=== PATIENT | female | born 1940 | race Caucasian/White ===

== ENCOUNTER → 2016-11-08 | Outpatient (CLI) | payer MEDICARE, BC ==
--- NOTE | 2016-11-08 14:46 | US ---
EXAMINATION TYPE: US venous doppler duplex LE RT DATE OF EXAM: 11/08/2016 2:07 PM COMPARISON: US 2009 CLINICAL HISTORY: M79.661 Pain right lower limb. Pain at knee x 1 month. SIDE PERFORMED: Right TECHNIQUE: The lower extremity deep venous system is examined utilizing real time linear array sonog zoe with graded compression, doppler sonography and color-flow sonography. VESSELS IMAGED: Common Femoral Vein Deep Femoral Vein Greater Saphenous Vein * Femoral Vein Popliteal Vein Small Saphenous Vein * Proximal Calf Veins (* superficial vessels) Right Leg: Negative for DVT. Right popliteal fossa cyst is noted = 3.6 x 0.8 x 1.8cm. Tech findings called to [facility] at Dr Tam's [facility] at exam's end. Left Leg: IMPRESSION: Grayscale, color doppler, spectral doppler imaging performed of the deep veins of the lo wer extremities. There is normal flow, compressibility, vascular waveforms bilaterally. No evident deep venous thrombosis at or above the right knee. Semimembranosus gastrocnemius cyst present in the popliteal fossa.
== END | disposition home or self-care (01) ==
LOC: RADUSWWP 13:35
PROVIDERS: ATTEND Family Medicine
DX: M85.661 Other cyst of bone, right lower leg (principal); M79.661 Pain in right lower leg

== ENCOUNTER → 2017-01-27 | Outpatient (CLI) | payer MEDICARE, BC ==
--- NOTE | 2017-01-27 10:13 | MR ---
EXAMINATION TYPE: MR knee RT wo con DATE OF EXAM: 01/27/2017 COMPARISON: NONE HISTORY: Right knee pain TECHNIQUE: Multiplanar, multisequence imaging of the right knee is performed without IV contrast. FINDINGS: MEDIAL MENISCUS: Complex tear posterior horn medial meniscus with pseudoextrusion of the meniscus. Gr lit III chondromalacia of the medial femoral articular cartilage. LATERAL MENISCUS: Intrasubstance signal in the posterior horn most typical of myxoid degeneration. Th ere is signal alteration within the anterior horn suspicious for tear.. CRUCIATE LIGAMENTS: The anterior and posterior cruciate ligaments are intact and unremarkable. COLLATERAL LIGAMENTS: The medial collateral ligament and lateral collateral ligament complex are inta ct. Fluid surrounding the MCL suggest MCL strain. EXTENSOR MECHANISM: Patellar and quadriceps tendons intact. Trace amount of fluid in the suprapatella r bursa. Grade II chondromalacia lateral patellar facet. Prepatellar soft tissue edema noted. POPLITEAL CYST: 0.7 x 0.5 x 2.4 cm popliteal fossa cyst. TRICOMPARTMENT SPACES: Mild narrowing of the medial compartment knee joint and patellofemoral joint. BONE MARROW SIGNAL: Marrow signal within the medial tibia likely related marrow edema or contusion.. IMPRESSION: 1. Complex posterior horn medial meniscal tear. 2. Anterior horn lateral meniscal tear. 3. Ill definition posterior fibers of the proximal ACL suspicious for strain or partial tear. 4. MCL strain with no tear. 5. Osteoarthritis.
== END | disposition home or self-care (01) ==
LOC: RADMRIMAIN 08:41
PROVIDERS: ATTEND Orthopaedic Surgery
DX: S86.811A Strain of other muscle(s) and tendon(s) at lower leg level, right leg, initial encounter (principal); S83.241A Other tear of medial meniscus, current injury, right knee, initial encounter; S83.281A Other tear of lateral meniscus, current injury, right knee, initial encounter; M17.11 Unilateral primary osteoarthritis, right knee

== ENCOUNTER → 2020-12-19 | Outpatient (CLI) | payer MEDICARE, OTHER ==
[2020-12-19 14:57] LABS: Basophils % (A) 0 %; Eosinophils # (A) 0.1 k/uL (0-0.7); Eosinophils % (A) 2 %; HCT 37.6 % (34.0-46.0); HGB 12.4 gm/dL (11.4-16.0); Lymphocytes # (A) 1.8 k/uL (1.0-4.8); Lymphocytes % (A) 22 %; MCH 31.1 pg (25.0-35.0); MCHC 32.9 g/dL (31.0-37.0); MCV 94.7 fL (80.0-100.0); Mean Platelet Volume 8.1; Monocytes # (A) 0.5 k/uL (0-1.0); Monocytes % (A) 6 %; Neutrophils # (A) 5.4 k/uL (1.3-7.7); Neutrophils % (A) 68 %; Platelet Count 322 k/uL (150-450); RBC 3.97 m/uL (3.80-5.40); RDW 13.5 % (11.5-15.5)
[2020-12-19 15:03] LABS: Potassium 3.7 mmol/L (3.5-5.1)
== END | disposition home or self-care (01) ==
LOC: LABPAT 13:25
PROVIDERS: ATTEND Orthopaedic Surgery
DX: Z01.818 Encounter for other preprocedural examination (principal); M23.92 Unspecified internal derangement of left knee; R00.1 Bradycardia, unspecified
CPT/HCPCS: 36415; 80051; 85025; 93005

== ENCOUNTER 2020-12-21 08:19 | Day surgery (SDC) | payer MEDICARE, OTHER ==
[2020-12-20 08:33] VITALS: BMI 31.3
--- NOTE | 2020-12-20 19:23 | HP ---
HISTORY AND PHYSICAL DATE OF SURGERY: 12/21/2020 Jessenia Fuentes is an 80-year-old patient seen with left knee pain. We discussed options. She elected to proceed with arthroscopy. Consent was obtained. PAST MEDICAL HISTORY: Hypertension. PAST SURGICAL HISTORY: Carpal tunnel release, right knee arthroscopy. MEDICATIONS: Amlodipine, aspirin. ALLERGIES: PENICILLIN. SOCIAL HISTORY: She denies tobacco use. PHYSICAL EVALUATION OF THE LEFT KNEE: Range of motion is -2 to 35. Mild effusion. Tenderness medial joint line. Positive medial Markos's. Ligaments stable. Hip rotation without pain. Distal neurovascular exam intact. RADIOGRAPHS: Radiographs of the left knee revealed mild osteoarthritic changes. IMPRESSION: 1. Internal derangement left knee with meniscal tear. 2. Hypertension. PLAN: Left knee arthroscopy with partial meniscectomy and debridement. MMODL / IJN: [id number] /
[~2020-12-21 08:19] MED LIST: DEXAMETHASONE SOD PHOSPHATE 4 MG/ML 1 ML VIAL IV ONE; ONDANSETRON 4 MG/2 ML VIAL IVP ONE
[2020-12-21] MEDS ORDERED: ONDANSETRON 4 MG/2 ML VIAL ONE (09:03)
[2020-12-21] MEDS: LACTATED RINGERS 1,000 ML IV SCH ×2 (09:03→12:40)
[2020-12-21] MEDS ORDERED: fentaNYL (PF) 50 MCG/ML 2 ML AMP ONE (09:12)
[2020-12-21] MEDS ORDERED: PROPOFOL 10 MG/ML 20 ML VIAL IV ONE (09:12)
[2020-12-21] MEDS ORDERED: LIDOCAINE 1% INJ 10MG/ML (20 ML MDV) ONE (09:12)
[2020-12-21] MEDS ORDERED: BUPIVACAINE (PF) 0.25% 30 ML VIAL SQ ONE (09:34)
--- NOTE | 2020-12-21 10:05 | P.OP ---
Date of Procedure: 12/21/20 Preoperative Diagnosis: Internal derangement left knee Postoperative Diagnosis: 1. Tear medial meniscus left knee 2. Reactive synovitis medial, lateral and suprapatellar compartments left knee Procedure(s) Performed: 1. Arthroscopic partial medial meniscectomy left knee 2. Arthroscopic partial synovectomy medial, lateral and suprapatellar compartments left knee Anesthesia: HITESHA, local Surgeon: Tanvir Hunter Estimated Blood Loss (ml): 7 Pathology: none sent Condition: stable Disposition: PACU Indications for Procedure: 80-year-old patient seen with left knee pain consistent with probable meniscal tear. We discussed options. She elected to proceed with arthroscopy. Consent was obtained. Operative Findings: see description of procedure Description of Procedure: Patient was taken to the operative suite. Patient underwent a general anesthetic by the department of anesthesia. Patient was given preoperative antibiotics. The left lower extremity was placed in a well-padded arthroscopic leg teran. The left leg was prepped and draped in the normal sterile orthopedic fashion. A lateral parapatellar and suprapatellar incision was made. Trochars were inserted. Arthroscopy was initiated. Suprapatellar pouch revealed diffuse thick reactive synovitis. The patellofemoral joint appeared to articulate congruently. There was grade 1 chondromalacia of the patella with no osteochondral tears present. The scope was guided into the medial gutter. No loose bodies or plica were identified. The scope was then guided into the medial compartment. A medial parapatellar incision was made. Trocar inserted followed by probe. There was a complex tear involving the posterior horn of the medial meniscus. There were grade 1 chondromalacia changes of the medial femoral condyle with no osteochondral tears present. There was thick reactive synovitis anteriorly. I performed a partial medial meniscectomy getting down to stable meniscal tissue. I performed a partial synovectomy decompressing the thick reactive synovitis. The residual meniscus was probed and found to be stable. There was good decompression of the synovitis. Scope and probe were then guided into the intercondylar notch. Cruciates were identified, probed and found to be stable. The scope and probe were then guided into lateral compartment. The lateral meniscus was probed and found to be stable with some very mild superficial fraying. There was no significant chondromalacia present. There was thick reactive synovitis anteriorly. I introduced a motorized shaver and I performed a partial synovectomy. The shaver was removed. There was good decompression of the synovitis. The scope was in guided back into the suprapatellar compartment. I introduced a motorized shaver into the super patellar compartment. I debrided some piecemeal fragments of meniscus that I encountered. I performed a partial synovectomy decompressing the thick reactive synovitis. The shaver was removed. There appeared be good decompression of the synovitis. I took one more look on the entire knee, no residual debris. Instruments were now removed from the joint. The joint was infiltrated with .25% Marcaine. Steri-Strips were applied to the portal sites. Sterile dressings were applied. The patient was placed into a MICHELLE hose. No tourniquet was utilized. The patient was awakened, transferred to a bed and taken to recovery stable satisfactory condition.
[2020-12-21 10:12] VITALS: TEMP 97.6
[2020-12-21] MEDS: HYDROmorphone 0.5 MG/0.5 ML SYRINGE IVP PRN ×2 (10:14→10:31)
[2020-12-21] MEDS ORDERED: diphenhydrAMINE 50 MG/ML 1 ML VIAL ONE (10:18)
[2020-12-21] MEDS ORDERED: diphenhydrAMINE 50 MG/ML 1 ML VIAL IVP ONE (10:20)
[2020-12-21] MEDS ORDERED: fentaNYL (PF) 50 MCG/ML 2 ML AMP IVP ONE (10:48)
[2020-12-21 11:24] VITALS: RESP 18
[2020-12-21 12:51] VITALS: BP 130/77; PULSE 56
== END 2020-12-21 13:17 | disposition home or self-care (01) ==
LOC: OR 08:19
PROVIDERS: ATTEND Orthopaedic Surgery
DX: M23.204 Derangement of unspecified medial meniscus due to old tear or injury, left knee (principal); M65.862 Other synovitis and tenosynovitis, left lower leg; M22.42 Chondromalacia patellae, left knee; I10 Essential (primary) hypertension; Z98.890 Other specified postprocedural states; Z87.891 Personal history of nicotine dependence; J45.909 Unspecified asthma, uncomplicated; M19.90 Unspecified osteoarthritis, unspecified site; K21.9 Gastro-esophageal reflux disease without esophagitis; Z98.51 Tubal ligation status; Z90.89 Acquired absence of other organs; Z79.82 Long term (current) use of aspirin; Z79.891 Long term (current) use of opiate analgesic; Z79.899 Other long term (current) drug therapy; Z88.0 Allergy status to penicillin
CPT/HCPCS: 29881; 29876; J1200; J1100; J2405; J0690; J2001; J3010; J2704; J1170